=== PATIENT | male | born 1990 | race Caucasian/White ===

== ENCOUNTER 2022-04-13 13:13 | Emergency (ER) | payer OTHER, MEDICAID, SELFPAY ==
[2022-04-13 13:14] VITALS: BP 147/91; PULSE 87; RESP 20; TEMP 36.6; O2SAT 95; BMI 41.5
[2022-04-13 13:32] VITALS: O2SAT 96
--- NOTE | 2022-04-13 13:40 | ED.RN ---
pt describes dizziness I fall (collapse). denies room spinning.
[2022-04-13 13:48] VITALS: BP 146/94; BP 158/105; BP 162/91; PULSE 88; PULSE 90; PULSE 91
[2022-04-13] MEDS: 0.9% Normal Saline 1,000 ML 1000 ML IV (14:02)
[2022-04-13 14:03] LABS: Absolute Lymphocyte Count 1.01 X10^3/uL (0.83-4.51); Absolute Neutrophil Count 6.2 X10^3/uL (2.0-7.7); Basophil# 0.14 X10^3/uL; Basophil% 1.8 % (0-1); Eosinophil# 0.04 X10^3/uL; Eosinophils% 0.5 % (0-5); Hematocrit 47.5 % (40-54); Hemoglobin 16.4 g/dL (13.0-16.5); Lymphocyte # 1.01 X10^3/ul (0.83-4.51); Lymphocyte % 12.8 % (19-41); Mean Corp Hgb Conc 34.5 g/dL (32-36); Mean Corpuscular Hgb 31.4 pg (27.0-32.0); Mean Corpuscular Volume 90.8 fL (80-94); Mean Platelet Vol. 9.1 fl (6.2-12.0); Monocyte# 0.39 X10^3/uL; NRBC Flagged by Analyzer 0 % (0-5); Neutrophil # 6.22 X10^3/uL (2.7-7.7); Neutrophil % 79.1 % (47-70); Platelet Count 302 K/mm3 (150-450); RBC Distribution Width CV 13.8 % (11.6-14.6); RBC Distribution Width SD 45.5 fl (35.1-43.9); Red Blood Count 5.23 M/mm3 (4.6-6.2); White Blood Count 7.9 K/mm3 (4.4-11.0)
[2022-04-13 14:23] LABS: ALB/GLOB Ratio 0.7 RATIO (0.9-2.4); AST(SGOT) 20 U/L (15-37); Alanine Aminotransfer ALT/SGPT 36 U/L (16-61); Albumin, Serum 3.1 g/dL (3.2-5.0); Alkaline Phosphatase 74 U/L (45-117); Anion Gap 7 (5-15); BUN 13 mg/dL (7-18); Calcium,Total 9.6 mg/dL (8.5-10.1); Chloride 103 mmol/L (98-107); EST Glomerular Filtration Rate 91 mL/min (>60); Est Glom Filt Rate - Afr Amer 110 mL/min (>60); Globulin 4.5 g/dL (2.2-4.2); Glucose 122 mg/dL (74-106); Protein, Total 7.6 g/dL (6.4-8.2); Sodium Level 137 mmol/L (136-145); Troponin-I HS 6 pg/mL (3.0-78.0)
[2022-04-13] MEDS: Meclizine HCl 25 MG Tablet PO (14:43)
[2022-04-13] MEDS: Ketorolac 15 MG/ML Vial IV (14:43)
[2022-04-13 15:34] VITALS: BP 144/91; PULSE 66; RESP 19; O2SAT 94
--- NOTE | 2022-04-13 16:44 | EX.ED.DYSGE1 ---
HPI History of Present Illness Chief Complaint: Shortness of Breath Narrative Narrative: Patient presents with dizziness, he has chronic recurrent dizziness this is been ongoing for about 16 years. He has Down syndrome and MRDD, he tells me it is the same symptoms that he has, the mother is worried since the past few times he spend the weekend at his father's house he has had this dizziness although he has had this dizziness multiple multiple times in the past. No new symptoms today. [facility] Medical History Down syndrome Hypothyroidism Orthostatic hypotension Home Medications levothyroxine 112 mcg tablet 112 mcg PO DAILY 07/12/14 [History Last Taken 07/12/14] cholecalciferol (vitamin D3) 100 mcg (4,000 unit) capsule 100 mcg PO DAILY 04/13/22 [History Last Taken Unknown] meclizine 25 mg tablet 25 mg PO TID #20 tabs 04/13/22 [Rx Last Taken Unknown] mecobalamin (vitamin B12) 1,000 mcg chewable tablet (B12 Active) 1,000 mcg PO DAILY 04/13/22 [History Last Taken Unknown] Allergy/AdvReac Type Severity Reaction Status Date / Time No Known Allergies Allergy Verified 04/13/22 13:17 Surgical History History of tonsillectomy and adenoidectomy Social History Smoking Status: Never smoker ROS ROS ED ROS Narrative Past medical history: Reviewed Medications: Reviewed Social history: Noncontributory Review of systems: Between the patient and the mom I can get a reasonable review of systems. All systems negative except as indicated General: No reported fever Eyes: No visual changes ENT: No upper airway congestion, normal voice Neck: No neck pain Cardiovascular: No chest pain Respiratory: No shortness of breath or cough Gastrointestinal: No abdominal pain, nausea vomiting or diarrhea Genitourinary: No dysuria Musculoskeletal: Denies myalgias no difficulty with ambulation Skin: No rash Neurological: Dizziness as in HPI, it is hard to tell me if it is lightheadedness or vertigo, however no new neurological symptoms Psych: No recent behavioral changes Hematologic: No easy bleeding or easy bruising EXAM Physical Exam Narrative Exam Narrative: Physical exam General: Down's features, otherwise he appears relatively comfortable in the bed. Head: Normocephalic, Atraumatic Eyes: Conjunctiva not pale ENT: Slightly dry mucous membranes Neck: Supple, Nontender, No lymphadenopathy Cardiovascular: Regular rate, Regular rhythm I cannot appreciate a murmur however it is kind allowed in the room. Respiratory: No distress, CTA bilaterally Abdomen: Soft, Nontender, Nondistended Back: Nontender, Normal Inspection. Negative for: CVA tenderness Extremities: Nontender, No edema Skin: Normal color, No rash Neurological: Alert, Normal Strength, Normal Sensation Psychological: Normal affect Const Vital Signs: 04/13/22 13:14 04/13/22 13:32 04/13/22 13:48 Temperature 97.9 F Temperature Source Temporal Pulse Rate 87 Pulse Rate [Lying] 90 Pulse Rate [Sitting (for 1 minute prior to obtaining)] 88 Pulse Rate [Standing (for 1 minute prior to obtaining)] 91 Respiratory Rate 20 H Respiratory Effort Normal Respiratory Depth Normal Respiratory Pattern Normal Blood Pressure 147/91 H Blood Pressure [Lying] 146/94 H Blood Pressure [Sitting (for 1 minute prior to obtaining)] 158/105 H Blood Pressure [Standing (for 1 minute prior to obtaining)] 162/91 H Blood Pressure Mean 109 Blood Pressure Mean [Lying] 111 Blood Pressure Mean [Sitting (for 1 minute prior to obtaining)] 122 Blood Pressure Mean [Standing (for 1 minute prior to obtaining)] 114 Pulse Ox 95 Oxygen Delivery Method Room Air Room Air 04/13/22 15:34 Temperature Temperature Source Pulse Rate 66 Pulse Rate [Lying] Pulse Rate [Sitting (for 1 minute prior to obtaining)] Pulse Rate [Standing (for 1 minute prior to obtaining)] Respiratory Rate 19 H Respiratory Effort Respiratory Depth Respiratory Pattern Blood Pressure 144/91 H Blood Pressure [Lying] Blood Pressure [Sitting (for 1 minute prior to obtaining)] Blood Pressure [Standing (for 1 minute prior to obtaining)] Blood Pressure Mean 108 Blood Pressure Mean [Lying] Blood Pressure Mean [Sitting (for 1 minute prior to obtaining)] Blood Pressure Mean [Standing (for 1 minute prior to obtaining)] Pulse Ox 94 Oxygen Delivery Method Room Air MDM MDM MDM Narrative Medical decision making narrative: Patient's work-up is unremarkable. He appears well. He improved with IV fluids and meclizine. He wants to be discharged this is reasonable, it is chronic and recurrent. Lab Data Labs: Laboratory Results - last 24 hr 04/13/22 04/13/22 14:00 14:00 WBC 7.9 RBC 5.23 Hgb 16.4 Hct 47.5 MCV 90.8 MCH 31.4 MCHC 34.5 RDW Std Deviation 45.5 H RDW Coeff of Tila 13.8 Plt Count 302 MPV 9.1 Immature Gran % (Auto) 0.800 Neut % (Auto) 79.1 H Lymph % (Auto) 12.8 L Price % (Auto) 5.0 Eos % (Auto) 0.5 Baso % (Auto) 1.8 H Absolute Neuts (auto) 6.2 Absolute Lymphs (auto) 1.01 Nucleated RBC % 0 Sodium 137 Potassium 4.0 Chloride 103 Carbon Dioxide 27.0 Anion Gap 7 BUN 13 Creatinine 1.00 Estim Creat Clear Calc 77.00 Est GFR (MDRD) Af Amer 110 Est GFR (MDRD) Non-Af 91 BUN/Creatinine Ratio 13.0 Glucose 122 H Calcium 9.6 Total Bilirubin 0.60 AST 20 ALT 36 Alkaline Phosphatase 74 Troponin I High Sens 6 Total Protein 7.6 Albumin 3.1 L Globulin 4.5 H Albumin/Globulin Ratio 0.7 L Discharge Plan Triage Chief Complaint: Shortness of Breath ED Provider: Devon Solomon Dx/Rx/DC Orders Clinical Impression: Down's syndrome, Dizziness Instructions: ED Dizziness, Uncertain Cause Prescriptions: New meclizine 25 mg tablet 25 mg PO TID Qty: 20 0RF No Action levothyroxine 112 MCG tablet 112 mcg PO DAILY Label Comments: THYROID Vitamin D3 100 mcg (4,000 unit) Capsule 100 mcg PO DAILY mecobalamin (vitamin B12) [B12 Active] 1,000 mcg Tablet,Chewable 1,000 mcg PO DAILY Primary Care Provider: Jackie Puga Referrals: Jackie Puga MD [Primary Care Provider] - 2 Days Disposition Disposition: Home, Self Care
[2022-04-13 17:08] VITALS: BP 144/92; PULSE 89; RESP 16; O2SAT 97
== END 2022-04-13 17:09 | disposition home or self-care (01) ==
PROVIDERS: Emergency Provider Emergency Medicine; PCP Internal Medicine; Visit Provider Emergency Medicine
DX: R06.02 Shortness of breath (principal); Q90.9 Down syndrome, unspecified; R42 Dizziness and giddiness; F79 Unspecified intellectual disabilities
CPT/HCPCS: 80053; 84484; 85025; 93005; 96361; 96374; 99285; J7030; A4216